=== PATIENT | male | born 1955 | race Caucasian/White ===

== ENCOUNTER 2021-10-20 23:53 | Emergency (ER) | payer OTHER ==
[2021-10-21 00:03] VITALS: BP 125/74; PULSE 96; TEMP 97.8; BMI 27.8
[2021-10-21] MEDS ORDERED: DIPHTH,PERTUSS(ACELL),TET 0.5 ML DISP.SYRIN IM ONE ×2 (01:03→01:31)
== END 2021-10-21 03:54 | disposition home or self-care (01) ==
LOC: JER 23:53
PROC: 0HQ1XZZ Repair Face Skin, External Approach (ICD-10-PCS; principal; 2021-10-20)
PROC: 3E0234Z Introduction of Serum, Toxoid and Vaccine into Muscle, Percutaneous Approach (ICD-10-PCS; 2021-10-20)
DX: S01.81XA Laceration without foreign body of other part of head, initial encounter (principal); W19.XXXA Unspecified fall, initial encounter
CPT/HCPCS: 12013; 70450-TC; 70486-TC; 90471; 90715; 99284-25